=== PATIENT | male | born 1955 | race Caucasian/White ===

== ENCOUNTER 2024-05-06 08:17 | Day surgery (SDC) | payer OTHER, BC ==
[2024-05-04 16:08] LABS: Absolute Eosinophils 0.1 K/uL (0-0.5); Absolute Lymphocytes (CBC) 0.9 K/uL (0.7-4.9); Absolute Monocytes 0.7 K/uL (0.1-1.3); Absolute Neutrophil 5.8 K/uL (1.8-8.0); Basophils % 0.5 % (0-1.3); Eosinophils % 1.5 % (0-4.4); Lymphocytes % 11.3 % (15.3-44.8); MCH 31.6 pg (27.0-35.0); MCHC 34.9 g/dL (32.0-36.0); MCV 90.6 fL (80-100); MPV 9.1 fL (7.6-11.3); Monocytes % 9.8 % (3.3-12.3); Neutrophils % 76.9 % (41.7-73.7); Nucleated Red Blood Cells % 0.2 % (0-0); Platelets 259 thou/uL (152-406); RBC Red Blood Cell Count 4.42 M/uL (4.33-5.43)
[2024-05-04 16:20] LABS: Anion Gap 8.9 mEq/L (5.0-15.0); Potassium 3.9 mEq/L (3.5-5.1)
[2024-05-06] MEDS ORDERED: LIDOCAINE 1% MPF 5 ML VIAL ONE (09:35)
[2024-05-06] MEDS ORDERED: propofoL 200 MG/20 ML VIAL IV ONE (09:35)
[2024-05-06] MEDS: Ringers Lactate 1,000 ML IV ONE (10:09)
[2024-05-06] MEDS ORDERED: Phenylephrine HCl 10 MG/ML 1 ML VIAL ONE (10:48)
[2024-05-06 11:35] VITALS: BP 106/64; TEMP 97.1; O2SAT 96
--- NOTE | 2024-05-10 11:27 | EKG ---
Test Date: 2024-05-04 Test Time: 16:50:10 Child Day Care Provider: ANA MEASUREMENT RESULTS: Intervals: Rate: 64 AK: 188 QRSD: 86 QT: 410 QTc: 422 [place]: P: 53 AK: 188 QRS: -19 T: 34 INTERPRETIVE STATEMENTS: Normal sinus rhythm Normal ECG No previous ECG available for comparison Electronically Signed On 05-10-24 11:09:31 CDT by Forrest Lopez
== END 2024-05-06 11:13 | disposition home or self-care (01) ==
LOC: OR 08:17
PROVIDERS: ATTEND Surgery
PROC: 0DB78ZX Excision of Stomach, Pylorus, Via Natural or Artificial Opening Endoscopic, Diagnostic (ICD-10-PCS; 2024-05-06)
PROC: 0DB68ZX Excision of Stomach, Via Natural or Artificial Opening Endoscopic, Diagnostic (ICD-10-PCS; 2024-05-06)
PROC: 0DB48ZX Excision of Esophagogastric Junction, Via Natural or Artificial Opening Endoscopic, Diagnostic (ICD-10-PCS; 2024-05-06)
PROC: 0DB98ZX Excision of Duodenum, Via Natural or Artificial Opening Endoscopic, Diagnostic (ICD-10-PCS; principal; 2024-05-06 10:15)
DX: K21.9 Gastro-esophageal reflux disease without esophagitis (principal); K22.2 Esophageal obstruction; R10.13 Epigastric pain; K29.80 Duodenitis without bleeding; K44.9 Diaphragmatic hernia without obstruction or gangrene; K29.50 Unspecified chronic gastritis without bleeding; K21.00 Gastro-esophageal reflux disease with esophagitis, without bleeding
CPT/HCPCS: 93005; 85025; 80048; 36415; 88312; 88305; 43239; J2704; J2003; J2371; J7120